=== PATIENT | male | born 1940 | race Caucasian/White ===

== ENCOUNTER 2017-02-02 08:50 | Outpatient (CLI) | payer MEDICARE ==
[2017-02-02 11:05] LABS: HEMOGLOBIN A1C 0.87 g/dL
[2017-02-02 11:13] LABS: ALBUMIN/GLOBULIN RATIO 1.2 (1.0-2.2); BILIRUBIN,TOTAL 1.1 mg/dL (0.2-1.0); BUN - BLOOD UREA NITROGEN 16 mg/dL (6-20); CALCIUM 9.9 mg/dL (8.5-10.3); CARBON DIOXIDE - CO2 28 mmol/L (21-32); CHLORIDE 97 mmol/L (101-111); CHOL/HDL RATIO 2.1 (<5.0); CHOLESTEROL 144 mg/dL; CREATININE 1.1 mg/dL (0.6-1.2); GFR - MDRD 65 (>89); GLUCOSE 285 mg/dL (70-100); HDL CHOLESTEROL 68 mg/dL; LDL/HDL RATIO 0.9 (<3.6); POTASSIUM 4.4 mmol/L (3.5-5.0); SODIUM 134 mmol/L (135-145); TOTAL PROTEIN 8.2 g/dL (6.7-8.2); TRIGLYCERIDES 66 mg/dL; VLDL CHOLESTEROL 13 mg/dL
== END 2017-02-02 08:51 | disposition home or self-care (01) ==
LOC: LAB.F 08:50
PROVIDERS: ATTEND Nurse Practitioner Family
DX: I10 Essential (primary) hypertension (principal); E11.9 Type 2 diabetes mellitus without complications; E03.9 Hypothyroidism, unspecified
CPT/HCPCS: 36415; 80053; 80061; 83036; 84443

== ENCOUNTER 2017-03-16 11:24 | Outpatient (CLI) | payer MEDICARE ==
--- NOTE | 2017-03-16 19:21 | XRAY Report ---
TWO VIEW CHEST: 03/16/2017 CLINICAL INDICATION: Abnormal breath sounds. COMPARISON: 06/23/2008 Frontal and lateral views of the chest demonstrate an enlarged cardiac silhouette. Mild basilar atel ectasis is present. No effusion or pneumothorax is seen. IMPRESSION: BIBASILAR ATELECTASIS. JOB #: [id number] EXT JOB #:[id number]
== END 2017-03-16 11:25 | disposition home or self-care (01) ==
LOC: DI.S 11:24
PROVIDERS: ATTEND Nurse Practitioner Family
DX: J98.11 Atelectasis (principal); I10 Essential (primary) hypertension; E11.9 Type 2 diabetes mellitus without complications; M50.00 Cervical disc disorder with myelopathy, unspecified cervical region
CPT/HCPCS: 36415; 71020; 80053; 83036; 85610; 85730; 93005

== ENCOUNTER 2017-03-16 13:55 | Outpatient (CLI) | payer MEDICARE | END 2017-03-16 13:56 | disposition home or self-care (01) | DX: E11.9 Type 2 diabetes mellitus without complications (principal) ==

== ENCOUNTER 2017-03-18 13:21 | Outpatient (CLI) | payer MEDICARE ==
[2017-03-18 18:11] LABS: BILIRUBIN,URINE NEGATIVE (NEGATIVE); PH,URINE 5.5 PH (5.0-7.5)
[2017-03-18 18:29] LABS: WBC,URINE 0-3 /HPF (0-3)
== END 2017-03-18 13:22 ==
LOC: LAB.R 13:21
PROVIDERS: ATTEND Nurse Practitioner Family
DX: Z01.818 Encounter for other preprocedural examination (principal); E11.9 Type 2 diabetes mellitus without complications
CPT/HCPCS: 81001

== ENCOUNTER 2017-03-18 15:01 | Outpatient (CLI) | payer MEDICARE ==
[2017-03-18 17:52] VITALS: BP 146/64
--- NOTE | 2017-03-22 08:01 | CARDIAC PROCEDURE NOTE ---
DATE OF SERVICE: 03/18/2017 00:00:00 PRIMARY CARE PROVIDER: BETHEL Garcia PROCEDURE: Cardiac treadmill stress test. PROCEDURE SYMPTOMS: Dyspnea on exertion, and preoperative spinal surgery. CARDIAC RISK FACTORS INCLUDE: Age, diabetes, and hypertension. PREVIOUS CARDIAC PROCEDURES: ETT. CLINICAL HISTORY: A 76-year-old male without known coronary artery disease. INITIAL RESTING VITAL SIGNS: Blood pressure 120/60, heart rate 92, height 64 inches, weight 169 pounds, BMI 29.0. PROCEDURE AND FINDINGS: Patient identity and date verified, consent signed. The patient performed treadmill exercise using a Jay protocol, completing 3 minutes 52 seconds, and completing an estimated work load of 7.0 metabolic equivalents. Maximal blood pressure was 160/70 with a heart rate of 149 beats per minute or 102% of maximum predicted heart rate for age. Blood pressure dropped to 114/60 at cessation of exercise without symptoms. The patient stopped exercise because of dyspnea. The resting ECG demonstrated normal sinus rhythm with no abnormalities. Maximum ST segment depression during exercise was 2 mm and flat to upsloping. There was one PVC. Heart rate only dropped 9 beats at 1 minute into recovery. FINAL IMPRESSIONS 1. Positive stress electrocardiogram for ischemia by electrocardiographic criteria. 2. Negative stress test clinically for angina. 3. Single PVC. 4. Notified spinal surgery clinic of positive test and need to see advanced manager. 5. Patient was also advised of the positive test and the need to see a advanced manager. JOB #: [id number] EXT JOB #:[id number] MTDD
--- NOTE | 2017-03-26 13:04 | XRAY Report ---
There was no imaging performed for this exam. Procedure notes and results available in the EMR. BON
== END 2017-03-18 15:02 | disposition home or self-care (01) ==
LOC: DI 15:01
PROVIDERS: ATTEND Nurse Practitioner Family
DX: R94.31 Abnormal electrocardiogram [ECG] [EKG] (principal); I10 Essential (primary) hypertension; E11.9 Type 2 diabetes mellitus without complications
CPT/HCPCS: 81001; 93017

== ENCOUNTER 2017-07-26 07:47 | Outpatient (CLI) | payer MEDICARE ==
[2017-07-26 10:49] LABS: BASOPHILS # (AUTO) 0.1 10^3/uL (0.0-0.1); BASOPHILS % (AUTO) 0.9 %; EOSINOPHILS # (AUTO) 0.9 10^3/uL (0.0-0.7); EOSINOPHILS % (AUTO) 7.3 %; HCT - HEMATOCRIT 36.2 % (42.0-52.0); LYMPHOCYTES # (AUTO) 3.6 10^3/uL (1.5-3.5); LYMPHOCYTES % (AUTO) 28.1 %; MEAN CORPUSCULAR HEMOGLOBIN 30.1 pg (27.0-31.0); MEAN CORPUSCULAR HGB CONC 33.1 g/dL (32.0-36.0); MEAN CORPUSCULAR VOLUME 90.8 fL (80.0-94.0); MEAN PLATELET VOLUME 8.4 fL (7.4-11.4); MONOCYTES # (AUTO) 1.1 10^3/uL (0.0-1.0); MONOCYTES % (AUTO) 8.3 %; NEUTROPHILS # (AUTO) 7.1 10^3/uL (1.5-6.6); NEUTROPHILS % (AUTO) 55.4 %; NUCLEATED RED BLOOD CELLS AUTO 0.1 /100WBC; RED BLOOD COUNT 3.99 10^6/uL (4.70-6.10); RED CELL DISTRIBUTION WIDTH 16.6 % (12.0-15.0); UNCORRECTED WHITE BLOOD COUNT 12.7 x10^3/uL; WHITE BLOOD COUNT 12.7 x10^3/uL (4.8-10.8)
[2017-07-26 11:07] LABS: ALBUMIN/GLOBULIN RATIO 1.1 (1.0-2.2); BILIRUBIN,TOTAL 0.7 mg/dL (0.2-1.0); BUN - BLOOD UREA NITROGEN 17 mg/dL (6-20); CALCIUM 9.6 mg/dL (8.5-10.3); CARBON DIOXIDE - CO2 23 mmol/L (21-32); CHLORIDE 100 mmol/L (101-111); CHOLESTEROL 109 mg/dL; CREATININE 0.9 mg/dL (0.6-1.2); GFR - MDRD 82 (>89); GLUCOSE 144 mg/dL (70-100); HDL CHOLESTEROL 55 mg/dL; LDL/HDL RATIO 0.8 (<3.6); SODIUM 137 mmol/L (135-145); TRIGLYCERIDES 60 mg/dL; VLDL CHOLESTEROL 12 mg/dL
[2017-07-26 11:14] LABS: HEMOGLOBIN A1C 0.53 g/dL
== END 2017-07-26 07:48 | disposition home or self-care (01) ==
LOC: LAB.F 07:47
PROVIDERS: ATTEND Nurse Practitioner Family
DX: I10 Essential (primary) hypertension (principal); I25.10 Atherosclerotic heart disease of native coronary artery without angina pectoris; E11.9 Type 2 diabetes mellitus without complications; D64.9 Anemia, unspecified
CPT/HCPCS: 36415; 80053; 80061; 83036; 85025

== ENCOUNTER 2018-01-12 07:44 | Outpatient (CLI) | payer MEDICARE ==
[2018-01-12 10:39] LABS: CALCIUM 9.3 mg/dL (8.5-10.3); CREATININE 0.9 mg/dL (0.6-1.2)
[2018-01-12 10:54] LABS: HB2 TOTAL 15.3 g/dL; HEMOGLOBIN A1C 0.86 g/dL; HEMOGLOBIN A1C % 7.3 % (4.6-6.2)
== END 2018-01-12 07:45 | disposition home or self-care (01) ==
LOC: LAB.F 07:44
PROVIDERS: ATTEND Nurse Practitioner Family
DX: E11.9 Type 2 diabetes mellitus without complications (principal); E03.9 Hypothyroidism, unspecified
CPT/HCPCS: 36415; 80048; 82043; 83036; 84443

== ENCOUNTER 2018-03-23 13:16 | Outpatient (CLI) | payer MEDICARE ==
[2018-03-23 17:23] LABS: BASOPHILS # (AUTO) 0.1 10^3/uL (0.0-0.1); EOSINOPHILS # (AUTO) 0.6 10^3/uL (0.0-0.7); EOSINOPHILS % (AUTO) 5.7 %; HGB - HEMOGLOBIN 13.9 g/dL (14.0-18.0); LYMPHOCYTES # (AUTO) 2.7 10^3/uL (1.5-3.5); LYMPHOCYTES % (AUTO) 24.6 %; MEAN CORPUSCULAR HEMOGLOBIN 29.7 pg (27.0-31.0); MEAN CORPUSCULAR HGB CONC 33.5 g/dL (32.0-36.0); MEAN CORPUSCULAR VOLUME 88.7 fL (80.0-94.0); MEAN PLATELET VOLUME 8.4 fL (7.4-11.4); MONOCYTES # (AUTO) 0.9 10^3/uL (0.0-1.0); MONOCYTES % (AUTO) 8.8 %; NEUTROPHILS # (AUTO) 6.5 10^3/uL (1.5-6.6); NEUTROPHILS % (AUTO) 59.9 %; PLT - PLATELET COUNT 227 10^3/uL (130-450); RED BLOOD COUNT 4.69 10^6/uL (4.70-6.10); RED CELL DISTRIBUTION WIDTH 15.6 % (12.0-15.0); WHITE BLOOD COUNT 10.8 x10^3/uL (4.8-10.8)
[2018-03-23 17:54] LABS: THYROID STIMULATING HORMONE 5.5 uIU/mL (0.34-5.60)
[2018-03-23 17:59] LABS: FERRITIN 55.1 ng/mL (23.9-336.2)
[2018-03-23 18:38] LABS: BUN - BLOOD UREA NITROGEN 13 mg/dL (6-20); CALCIUM 9.5 mg/dL (8.5-10.3); CARBON DIOXIDE - CO2 24 mmol/L (21-32); CHLORIDE 103 mmol/L (101-111); CREATININE 0.9 mg/dL (0.6-1.2); GFR - MDRD 82 (>89); GLUCOSE 147 mg/dL (70-100); SODIUM 136 mmol/L (135-145)
== END 2018-03-23 13:17 | disposition home or self-care (01) ==
LOC: LAB.F 13:16
PROVIDERS: ATTEND Nurse Practitioner Family
DX: E11.9 Type 2 diabetes mellitus without complications (principal); R53.83 Other fatigue; I25.10 Atherosclerotic heart disease of native coronary artery without angina pectoris; E03.9 Hypothyroidism, unspecified
CPT/HCPCS: 36415; 80048; 82728; 83880; 84443; 84481; 85025

== ENCOUNTER 2018-03-23 14:36 | Outpatient (CLI) | payer MEDICARE ==
--- NOTE | 2018-03-23 14:54 | XRAY Report ---
Procedure Date: 03/23/2018 Accession Number: [id number] / [id number] Procedure: XRS - Chest 2 View X-Ray CPT Code: 49982 FULL RESULT: EXAM: Chest 2 View X-Ray DATE: 03/23/2018 2:48 PM CLINICAL HISTORY: ABNORMAL BREATH SOUNDS, SHORTNESS OF BREATH COMPARISON: None. TECHNIQUE: 2 views. FINDINGS: Lungs/Pleura: There is mild peribronchial cuffing which can be seen with airway disease such as bronchitis. No focal opacities evident. No pneumothorax or pleural effusion. Normal volumes. Mediastinum: Cardiomegaly is stable compared to prior. Other: The patient is status post CABG. IMPRESSION: Thickening of the peribronchial tissues, this is nonspecific but can be seen with bronchitis. RADIA
== END 2018-03-23 14:37 | disposition home or self-care (01) ==
LOC: DI.S 14:36
PROVIDERS: ATTEND Nurse Practitioner Family
DX: R09.89 Other specified symptoms and signs involving the circulatory and respiratory systems (principal); R06.02 Shortness of breath; E11.9 Type 2 diabetes mellitus without complications; R53.83 Other fatigue; I25.10 Atherosclerotic heart disease of native coronary artery without angina pectoris; E03.9 Hypothyroidism, unspecified
CPT/HCPCS: 36415; 71046; 80048; 82728; 83880; 84443; 84481; 85025

== ENCOUNTER 2018-08-22 08:00 | Outpatient (CLI) | payer MEDICARE ==
[2018-08-22 18:15] LABS: HB2 TOTAL 16.2 g/dL; HEMOGLOBIN A1C 0.95 g/dL; HEMOGLOBIN A1C % 7.5 % (4.6-6.2)
[2018-08-22 18:23] LABS: THYROID STIMULATING HORMONE 0.84 uIU/mL (0.34-5.60)
[2018-08-22 18:25] LABS: FREE T4 (FREE THYROXINE) 1.29 ng/dL (0.58-1.64)
== END 2018-08-22 23:59 | disposition home or self-care (01) ==
LOC: LAB.S 08:00
PROVIDERS: ATTEND Nurse Practitioner Family
DX: E11.40 Type 2 diabetes mellitus with diabetic neuropathy, unspecified (principal); E03.9 Hypothyroidism, unspecified
CPT/HCPCS: 36415; 83036; 84439; 84443

== ENCOUNTER 2018-11-23 10:10 | Outpatient (CLI) | payer MEDICARE ==
[2018-11-23 18:38] LABS: HB2 TOTAL 15.8 g/dL; HEMOGLOBIN A1C 0.76 g/dL; HEMOGLOBIN A1C % 6.6 % (4.6-6.2)
== END 2018-11-23 10:11 | disposition home or self-care (01) ==
LOC: LAB.F 10:10
PROVIDERS: ATTEND Nurse Practitioner Family
DX: E11.42 Type 2 diabetes mellitus with diabetic polyneuropathy (principal)
CPT/HCPCS: 36415; 83036

== ENCOUNTER 2019-03-16 10:48 | Outpatient (CLI) | payer MEDICARE | END 2019-03-16 10:49 | disposition home or self-care (01) | LOC: LAB.S 10:48 | PROVIDERS: ATTEND Internal Medicine | DX: E11.9 Type 2 diabetes mellitus without complications (principal); E03.9 Hypothyroidism, unspecified | CPT/HCPCS: 36415; 80053; 83036; 84443; 85027 ==

== ENCOUNTER 2019-03-17 13:22 | Outpatient (CLI) | payer MEDICARE ==
[2019-03-17 18:01] LABS: HGB - HEMOGLOBIN 14.8 g/dL (14.0-18.0); MEAN CORPUSCULAR HEMOGLOBIN 29.1 pg (27.0-31.0); MEAN CORPUSCULAR HGB CONC 32.3 g/dL (32.0-36.0); MEAN PLATELET VOLUME 11.3 fL (7.4-11.4); RED BLOOD COUNT 5.09 10^6/uL (4.70-6.10); RED CELL DISTRIBUTION WIDTH 14.2 % (12.0-15.0); WHITE BLOOD COUNT 11.1 x10^3/uL (4.8-10.8)
[2019-03-17 18:51] LABS: ALBUMIN 4.1 g/dL (3.2-5.5); ALBUMIN/GLOBULIN RATIO 1.1 (1.0-2.2); BILIRUBIN,TOTAL 0.9 mg/dL (0.2-1.0); CALCIUM 9.4 mg/dL (8.5-10.3)
[2019-03-17 20:04] LABS: HB2 TOTAL 15.7 g/dL; HEMOGLOBIN A1C 0.79 g/dL; HEMOGLOBIN A1C % 6.8 % (4.6-6.2)
== END 2019-03-17 13:23 | disposition home or self-care (01) ==
LOC: LAB.S 13:22
PROVIDERS: ATTEND Internal Medicine
DX: E11.9 Type 2 diabetes mellitus without complications (principal); E03.9 Hypothyroidism, unspecified; Z79.4 Long term (current) use of insulin
CPT/HCPCS: 36415; 80053; 83036; 84443; 85027

== ENCOUNTER 2019-08-09 07:03 | Outpatient (CLI) | payer MEDICARE ==
[2019-08-09 18:00] LABS: ALBUMIN/GLOBULIN RATIO 1.2 (1.0-2.2); ALKALINE PHOSPHATASE 60 IU/L (42-121); ALT ALANINE AMINOTRANSFERASE 21 IU/L (10-60); AST ASPARTATE AMINOTRANSFERASE 23 IU/L (10-42); BILIRUBIN,TOTAL 0.6 mg/dL (0.2-1.0); BUN - BLOOD UREA NITROGEN 20 mg/dL (6-20); CALCIUM 9.1 mg/dL (8.5-10.3); CARBON DIOXIDE - CO2 26 mmol/L (21-32); CHLORIDE 104 mmol/L (101-111); CHOL/HDL RATIO 2.9 (<5.0); CHOLESTEROL 160 mg/dL; CREATININE 1.1 mg/dL (0.6-1.2); GFR - MDRD 65 (>89); GLUCOSE 99 mg/dL (70-100); HDL CHOLESTEROL 56 mg/dL; LDL CHOLESTEROL,CALCULATED 85 mg/dL; LDL/HDL RATIO 1.5 (<3.6); SODIUM 138 mmol/L (135-145); TOTAL PROTEIN 7.3 g/dL (6.7-8.2); VLDL CHOLESTEROL 19 mg/dL
[2019-08-09 18:25] LABS: HB2 TOTAL 14.9 g/dL; HEMOGLOBIN A1C 0.57 g/dL; HEMOGLOBIN A1C % 5.7 % (4.6-6.2)
[2019-08-09 18:48] LABS: FREE T4 (FREE THYROXINE) 0.91 ng/dL (0.58-1.64)
== END 2019-08-09 07:04 | disposition home or self-care (01) ==
LOC: LAB.S 07:03
PROVIDERS: ATTEND Internal Medicine
DX: E11.9 Type 2 diabetes mellitus without complications (principal); Z79.4 Long term (current) use of insulin; E03.9 Hypothyroidism, unspecified
CPT/HCPCS: 36415; 80053; 80061; 83036; 83721; 84439; 84443

== ENCOUNTER 2019-10-23 10:23 | Outpatient (CLI) | payer MEDICARE | END 2019-10-23 10:24 | disposition home or self-care (01) | LOC: LAB.S 10:23 | PROVIDERS: ATTEND Internal Medicine | DX: E03.9 Hypothyroidism, unspecified (principal) | CPT/HCPCS: 36415; 84443 ==

== ENCOUNTER 2020-02-12 10:50 | Outpatient (CLI) | payer MEDICARE ==
[2020-02-12 15:27] LABS: CALCIUM 9.4 mg/dL (8.5-10.3); CREATININE 1.3 mg/dL (0.6-1.2)
[2020-02-12 15:37] LABS: HB2 TOTAL 15.2 g/dL; HEMOGLOBIN A1C 0.56 g/dL; HEMOGLOBIN A1C % 5.5 % (4.6-6.2)
== END 2020-02-12 10:51 | disposition home or self-care (01) ==
LOC: LAB.S 10:50
PROVIDERS: ATTEND Internal Medicine
DX: E11.9 Type 2 diabetes mellitus without complications (principal); E03.9 Hypothyroidism, unspecified; Z79.4 Long term (current) use of insulin
CPT/HCPCS: 36415; 80048; 83036; 84443

== ENCOUNTER 2020-03-06 11:26 | Outpatient (CLI) | payer MEDICARE ==
[2020-03-06 15:37] LABS: CALCIUM 9.4 mg/dL (8.5-10.3); CREATININE 1.2 mg/dL (0.6-1.2)
== END 2020-03-06 11:27 | disposition home or self-care (01) ==
LOC: LAB.S 11:26
PROVIDERS: ATTEND Internal Medicine
DX: I10 Essential (primary) hypertension (principal); I27.20 Pulmonary hypertension, unspecified
CPT/HCPCS: 36415; 80048

== ENCOUNTER 2020-05-29 21:46 | Outpatient (CLI) | payer MEDICARE | END 2020-05-29 21:47 | disposition EMS.NT | LOC: EMS 21:46 | PROVIDERS: ATTEND Surgery | DX: R41.82 Altered mental status, unspecified (principal); R11.0 Nausea; R53.1 Weakness ==

== ENCOUNTER 2020-05-30 08:00 | Outpatient (CLI) | payer MEDICARE | END 2020-05-30 23:59 | disposition home or self-care (01) | LOC: LAB.F 08:00 | PROVIDERS: ATTEND Family Medicine | DX: E11.9 Type 2 diabetes mellitus without complications (principal); Z79.4 Long term (current) use of insulin | CPT/HCPCS: 82962 ==

== ENCOUNTER 2020-08-26 11:10 | Outpatient (CLI) | payer MEDICARE ==
[2020-08-26 15:35] LABS: BASOPHILS # (AUTO) 0.1 10^3/uL (0.0-0.1); BASOPHILS % (AUTO) 0.7 %; EOSINOPHILS # (AUTO) 0.2 10^3/uL (0.0-0.7); EOSINOPHILS % (AUTO) 1.9 %; LYMPHOCYTES # (AUTO) 3.6 10^3/uL (1.5-3.5); LYMPHOCYTES % (AUTO) 38.1 %; MEAN CORPUSCULAR HEMOGLOBIN 31.6 pg (27.0-31.0); MEAN CORPUSCULAR VOLUME 98.7 fL (80.0-94.0); MEAN PLATELET VOLUME 11.1 fL (7.4-11.4); MONOCYTES # (AUTO) 0.7 10^3/uL (0.0-1.0); MONOCYTES % (AUTO) 7.3 %; NEUTROPHILS # (AUTO) 4.9 10^3/uL (1.5-6.6); NEUTROPHILS % (AUTO) 51.8 %; PLT - PLATELET COUNT 190 10^3/uL (130-450); RED BLOOD COUNT 4.75 10^6/uL (4.70-6.10); RED CELL DISTRIBUTION WIDTH 14.5 % (12.0-15.0); WHITE BLOOD COUNT 9.5 x10^3/uL (4.8-10.8)
[2020-08-26 15:36] LABS: ALBUMIN 3.9 g/dL (3.2-5.5); ALBUMIN/GLOBULIN RATIO 1.2 (1.0-2.2); BILIRUBIN,TOTAL 0.7 mg/dL (0.2-1.0); CREATININE 1.3 mg/dL (0.6-1.2); TOTAL PROTEIN 7.1 g/dL (6.7-8.2)
[2020-08-26 16:44] LABS: FREE T4 (FREE THYROXINE) 1.79 ng/dL (0.58-1.64)
[2020-08-26 20:08] LABS: HEMOGLOBIN A1c% 6.5 % (4.27-6.07)
== END 2020-08-26 11:11 | disposition home or self-care (01) ==
LOC: LAB.S 11:10
PROVIDERS: ATTEND Internal Medicine
DX: I10 Essential (primary) hypertension (principal); E11.9 Type 2 diabetes mellitus without complications; E03.9 Hypothyroidism, unspecified
CPT/HCPCS: 36415; 80053; 83036; 84439; 84443; 85025

== ENCOUNTER 2021-05-30 09:54 | Outpatient (CLI) | payer MEDICARE | END 2021-05-30 09:55 | disposition critical access hospital (66) | LOC: EMS 09:54 | DX: R06.02 Shortness of breath (principal) | CPT/HCPCS: A0425; A0427 ==

== ENCOUNTER 2021-05-30 10:32 | Emergency (ER) | payer MEDICARE ==
[2021-05-30] MEDS ORDERED: methylPREDNISolone SUCCINATE 125 MG/2 ML VIAL IVP STA (10:44)
[2021-05-30] MEDS ORDERED: IPRATROPIUM/ALBUTEROL 3 ML NEB INH STA ×2 (10:44→11:11)
[2021-05-30 11:03] LABS: BASOPHILS # (AUTO) 0.1 10^3/uL (0.0-0.1); BASOPHILS % (AUTO) 0.7 %; EOSINOPHILS # (AUTO) 0.2 10^3/uL (0.0-0.7); EOSINOPHILS % (AUTO) 2.1 %; HCT - HEMATOCRIT 38.1 % (42.0-52.0); HGB - HEMOGLOBIN 12.3 g/dL (14.0-18.0); LYMPHOCYTES # (AUTO) 0.6 10^3/uL (1.5-3.5); LYMPHOCYTES % (AUTO) 7.2 %; MEAN CORPUSCULAR HEMOGLOBIN 30.1 pg (27.0-31.0); MEAN CORPUSCULAR HGB CONC 32.3 g/dL (32.0-36.0); MEAN CORPUSCULAR VOLUME 93.2 fL (80.0-94.0); MEAN PLATELET VOLUME 10.3 fL (7.4-11.4); MONOCYTES # (AUTO) 0.6 10^3/uL (0.0-1.0); MONOCYTES % (AUTO) 7.1 %; NEUTROPHILS # (AUTO) 7.2 10^3/uL (1.5-6.6); NEUTROPHILS % (AUTO) 82.3 %; PLT - PLATELET COUNT 155 10^3/uL (130-450); RED BLOOD COUNT 4.09 10^6/uL (4.70-6.10); RED CELL DISTRIBUTION WIDTH 16.7 % (12.0-15.0); WHITE BLOOD COUNT 8.8 x10^3/uL (4.8-10.8)
[2021-05-30 11:16] LABS: BILIRUBIN,TOTAL 1.3 mg/dL (0.2-1.0); CALCIUM 8.4 mg/dL (8.5-10.3); CREATININE 1.6 mg/dL (0.6-1.2); POTASSIUM 4.9 mmol/L (3.5-5.0); TOTAL PROTEIN 5.9 g/dL (6.7-8.2)
--- NOTE | 2021-05-30 11:17 | XRAY Report ---
PROCEDURE: Chest 1 View X-Ray INDICATIONS: chest pain TECHNIQUE: One view of the chest was acquired. COMPARISON: CXR 03/23/2018. FINDINGS: Surgical changes and devices: Post median sternotomy and CABG.. Lungs and pleura: No pleural effusions or pneumothorax. Lungs are clear. Mediastinum: Mediastinal contours appear normal. Heart size is enlarged. Bones and chest wall: No suspicious bony lesions. Overlying soft tissues appear unremarkable. IMPRESSION: No acute cardiopulmonary abnormality identified. Post CABG. Cardiomegaly. Reviewed by: Gabriele Liu MD on 05/30/2021 11:16 AM PDT Approved by: Gabriele Liu MD on 05/30/2021 11:16 AM PDT Station ID: [id number]
--- NOTE | 2021-05-30 11:52 | ED Physician Documentation ---
PD HPI DYSPNEA - Stated complaint Stated Complaint: SOA/LOW O2 - Chief complaint Chief Complaint: Resp - History obtained from History obtained from: Patient, Family, EMS - History of Present Illness Timing - onset during: Rest Timing - duration: Weeks (3) Pain level max: 0 Pain level now: 0 Improved by: O2, Inhaler/neb, Steroids, Rest Worsened by: Exertion Associated symptoms: Cough (dry, chronic). No: Fever - Additional information Additional information: Patient is a 80-year-old male with a history of pulmonary fibrosis who has been having increased difficulty breathing over the past several weeks. Was placed on antibiotics and steroids and did seem to improve on this, when he stopped the steroids he began to have difficulty breathing again. Usually is on 3 to 4 L of oxygen at home. Has increased to 6 recently. O2 sat was down to 70 at home today. Has had 3 covid vaccinations. Review of Systems Ten Systems: 10 systems reviewed and negative Constitutional: denies: Fever, Chills Nose: denies: Rhinorrhea / runny nose, Congestion Cardiac: denies: Palpitations Respiratory: reports: Dyspnea, Wheezing GI: denies: Vomiting, Diarrhea : denies: Dysuria Musculoskeletal: denies: Neck pain, Back pain Neurologic: denies: Headache PD PAST MEDICAL HISTORY - Past Medical History Cardiovascular: Hypertension Respiratory: Other (pulmonary fibrosis) Endocrine/Autoimmune: Type 2 diabetes Musculoskeletal: Osteoarthritis - Past Surgical History General: Other - Present Medications Home Medications: Ambulatory Orders Medication Instructions Recorded Confirmed Albuterol Sulf [Ventolin Hfa 1 - 2 puffs INH Q4HR PRN #1 inhaler 05/30/21 Inhaler] Azithromycin [Zithromax] 0 mg PO DAILY #6 tablet 05/30/21 Cefpodoxime Proxetil [Vantin] 100 mg PO Q12H #20 tablet 05/30/21 Sulfamethox/Trimeth 800/160 1 tablet PO UD #15 tablet 05/30/21 [Bactrim Ds] predniSONE [Deltasone] 10 mg PO [id number] #42 tab 05/30/21 - Allergies Allergies/Adverse Reactions: Allergies Allergy/AdvReac Type Severity Reaction Status Date / Time naproxen Allergy Intermediate Hives Verified 05/30/21 11:22 PD ED PE NORMAL - Vitals Vital signs reviewed: Yes - General General: Alert and oriented X 3, No acute distress, Well developed/nourished - HEENT HEENT: PERRL, Moist mucous membranes - Neck Neck: Supple, no meningeal sign - Cardiac Cardiac: RRR, Strong equal pulses - Respiratory Respiratory: No respiratory distress, Clear bilaterally - Abdomen Abdomen: Soft, Non tender, Non distended - Derm Derm: Warm and dry - Extremities Extremities: No edema, No calf tenderness / cord - Neuro Neuro: Alert and oriented X 3 - Psych Psych: Normal mood, Normal affect Results - Vitals Vitals: Vital Signs - 24 hr 05/30/21 05/30/21 05/30/21 10:43 11:10 12:27 Temperature 36.7 C Heart Rate 115 H 88 105 H Respiratory 28 H 22 22 Rate Blood Pressure 117/70 110/63 O2 Saturation 88 L 92 05/30/21 05/30/21 05/30/21 12:30 13:14 14:00 Temperature Heart Rate 103 H 103 H 102 H Respiratory 24 26 H 29 H Rate Blood Pressure 115/70 133/73 H 114/77 O2 Saturation 91 L 91 L 95 05/30/21 05/30/21 14:47 16:08 Temperature Heart Rate 103 H 99 Respiratory 28 H 28 H Rate Blood Pressure 114/77 119/73 O2 Saturation 94 90 L Oxygen O2 Source Nasal cannula Oxygen Flow Rate 6 - Labs Labs: Laboratory Tests 05/30/21 05/30/21 05/30/21 10:56 10:56 10:56 WBC 8.8 RBC 4.09 L Hgb 12.3 L Hct 38.1 L MCV 93.2 MCH 30.1 MCHC 32.3 RDW 16.7 H Plt Count 155 MPV 10.3 Neut # (Auto) 7.2 H Lymph # (Auto) 0.6 L Cassia # (Auto) 0.6 Eos # (Auto) 0.2 Baso # (Auto) 0.1 Absolute Nucleated RBC 0.00 Nucleated RBC % 0.0 Sodium 132 L Potassium 4.9 Chloride 98 L Carbon Dioxide 20 L Anion Gap 14.0 H BUN 37 H Creatinine 1.6 H Estimated GFR (MDRD) 42 L Glucose 224 H Calcium 8.4 L Total Bilirubin 1.3 H AST 25 ALT 27 Alkaline Phosphatase 70 B-Natriuretic Peptide 827 H Total Protein 5.9 L Albumin 3.0 L Globulin 2.9 Albumin/Globulin Ratio 1.0 Nasal Adenovirus (PCR) Nasal B. parapertussis DNA (PCR) Nasal Coronavir 229E PCR Nasal Coronavir HKU1 PCR Nasal Coronavir NL63 PCR Nasal Coronavir OC43 PCR Nasal Enterovir/Rhinovir PCR Nasal Influenza B PCR Nasal Influenza A PCR Nasal Parainfluen 1 PCR Nasal Parainfluen 2 PCR Nasal Parainfluen 3 PCR Nasal Parainfluen 4 PCR Nasal RSV (PCR) Nasal B.pertussis DNA PCR Nasal C.pneumoniae (PCR) Ryan Human Metapneumo PCR Nasal M.pneumoniae (PCR) Nasal SARS-CoV-2 (PCR) 05/30/21 10:58 WBC RBC Hgb Hct MCV MCH MCHC RDW Plt Count MPV Neut # (Auto) Lymph # (Auto) Cassia # (Auto) Eos # (Auto) Baso # (Auto) Absolute Nucleated RBC Nucleated RBC % Sodium Potassium Chloride Carbon Dioxide Anion Gap BUN Creatinine Estimated GFR (MDRD) Glucose Calcium Total Bilirubin AST ALT Alkaline Phosphatase B-Natriuretic Peptide Total Protein Albumin Globulin Albumin/Globulin Ratio Nasal Adenovirus (PCR) NOT DETECTED Nasal B. parapertussis DNA (PCR) NOT DETECTED Nasal Coronavir 229E PCR NOT DETECTED Nasal Coronavir HKU1 PCR NOT DETECTED Nasal Coronavir NL63 PCR NOT DETECTED Nasal Coronavir OC43 PCR NOT DETECTED Nasal Enterovir/Rhinovir PCR NOT DETECTED Nasal Influenza B PCR NOT DETECTED Nasal Influenza A PCR NOT DETECTED Nasal Parainfluen 1 PCR NOT DETECTED Nasal Parainfluen 2 PCR NOT DETECTED Nasal Parainfluen 3 PCR NOT DETECTED Nasal Parainfluen 4 PCR NOT DETECTED Nasal RSV (PCR) NOT DETECTED Nasal B.pertussis DNA PCR NOT DETECTED Nasal C.pneumoniae (PCR) NOT DETECTED Ryan Human Metapneumo PCR NOT DETECTED Nasal M.pneumoniae (PCR) NOT DETECTED Nasal SARS-CoV-2 (PCR) NOT DETECTED - Rads (name of study) cxr Radiology: Final report received, EMP read contemporaneously, See rad report (no acute abnormality.) CT chest Radiology: Final report received, EMP read contemporaneously, See rad report PD MEDICAL DECISION MAKING - ED course Complexity details: reviewed results, re-evaluated patient, considered differential, d/w patient, d/w family, d/w solutions delivery consultant ED course: 80-year-old male presents to the emergency department with hypoxia today. This is been ongoing for the past month or so, worsening over the past 3 to 4 days since he stopped the prednisone. On CT of the chest, does appear to have a small right upper lobe pneumonia. We will place on antibiotics for this. Patient is well-appearing, nontoxic. Given Solu-Medrol and albuterol here. He is able to be weaned down to his baseline O2 of 4 L and maintain 90 to 92% oxygen saturation. Discussed the case with Dr. Pool, pulmonary technical support consultant for [facility]. He recommends placing on steroids, albuterol and having the patient follow-up in 1 week. Patient does not want to stay in the hospital. Patient and his are comfortable going home at this time. Patient counseled regarding signs and symptoms for which I believe and urgent reevaluation would be needed. This document was made in part using voice recognition software. While efforts are made to proofread this document, sound alike and grammatical errors may occur. IMPRESSION: 1. Small focal pneumonia in the superior segment of the right lower lobe superimposed on mild bibasilar pulmonary fibrosis. 2. Coronary artery disease. 3. Nonspecific mediastinal adenopathy. Departure - Departure Disposition: Home, Self Care Clinical Impression: Pulmonary fibrosis Pneumonia Qualifiers: Pneumonia type: due to unspecified organism Laterality: right Lung location: upper lobe of lung Qualified Code(s): J18.9 - Pneumonia, unspecified organism Condition: Good Instructions: ED Pneumonia Adult Follow-Up: BETO SNIDER ARNP [Primary Care Provider] - Larry Black MD [Physician No Access] - Within 1 week Prescriptions: Albuterol Sulf [Ventolin Hfa Inhaler] 1 - 2 puffs INH Q4HR PRN #1 inhaler PRN Reason: Shortness Of Air/Wheezing Sulfamethox/Trimeth 800/160 [Bactrim Ds] 1 tablet PO UD #15 tablet predniSONE [Deltasone] 10 mg PO [id number] #42 tab Cefpodoxime Proxetil [Vantin] 100 mg PO Q12H #20 tablet Azithromycin [Zithromax] 0 mg PO DAILY #6 tablet Comments: Please follow-up with your disintegrator operator for further care. Return if you worsen. Your prescriptions were sent to [facility] in [place]. Use all medications as prescribed. Discharge Date/Time: 05/30/21 16:20
[2021-05-30] MEDS ORDERED: SODIUM CHLORIDE 0.9% 1,000 ML IV STA (11:53)
[2021-05-30 12:15] LABS: B. PARAPERTUSSIS- RESP PCR PAN NOT DETECTED; B. PERTUSSIS- RESP PCR PANEL NOT DETECTED; C. PNEUMONIAE- RESP PCR PANEL NOT DETECTED; CORONAVIRUS 229E-RESP PCR NOT DETECTED; CORONAVIRUS HKU1-RESP PCR NOT DETECTED; CORONAVIRUS NL63-RESP PCR NOT DETECTED; CORONAVIRUS OC43-RESP PCR NOT DETECTED; HUMAN METAPNEUMOVIRUS NOT DETECTED; INFLUENZA A- RESP PCR PANEL NOT DETECTED; INFLUENZA B - RESP PCR PANEL NOT DETECTED; M. PNEUMONIAE- RESP PCR PANEL NOT DETECTED; PARAINFLUENZA VIRUS 1 NOT DETECTED; PARAINFLUENZA VIRUS 2 NOT DETECTED; PARAINFLUENZA VIRUS 3 NOT DETECTED; PARAINFLUENZA VIRUS 4 NOT DETECTED; RHINOVIRUS/ENTEROVIRUS NOT DETECTED; RSV- RESP PCR PANEL NOT DETECTED; SARS-CoV-2 -RESP PCR PANEL NOT DETECTED
--- NOTE | 2021-05-30 13:43 | Ultrasound Report ---
PROCEDURE: Duplex Ext Veins Left INDICATIONS: LLE swelling, bruising TECHNIQUE: Real-time imaging, as well as color and pulse Doppler interrogation, were performed of the lower extr emity deep veins from the inguinal ligament to the popliteal fossa. COMPARISON: None. FINDINGS: The deep veins are normally compressible, and free of intraluminal thrombus. Color and pu lse Doppler demonstrate normal phasic intraluminal flow. There is normal augmentation response to di stal compression maneuver. 1 x 1.7 x 2.8 cm heterogeneously hypoechoic collection within medial left midcalf muscle. No internal vascularity is seen. No adjacent hyperreninemia. IMPRESSION: 1. No evidence of DVT in visualized left lower extremity veins. 2. Possible intramuscular hematoma in the left mid calf region as above. Reviewed by: Jassi Josue MD on 05/30/2021 1:42 PM PDT Approved by: Jassi Josue MD on 05/30/2021 1:42 PM PDT Station ID: [id number]
[2021-05-30] MEDS ORDERED: IOPAMIDOL-300 100 ML VIAL ONE (13:49)
[2021-05-30] MEDS ORDERED: IOPAMIDOL-300 100 ML VIAL IVP ONE (14:07)
--- NOTE | 2021-05-30 14:22 | CT Report ---
PROCEDURE: CHEST W INDICATIONS: increasing hypoxia CONTRAST: IV CONTRAST: Isovue 300 ml: 100 PO CONTRAST: *NO PO CONTRAST TECHNIQUE: After the administration of intravenous contrast, images were acquired from the pulmonary apices to t he posterior costophrenic angles. Multiplanar MIP reformats were acquired. For radiation dose reduc tion, the following was used: automated exposure control, adjustment of mA and/or kV according to pa tient size. COMPARISON: None. FINDINGS: Image quality: Excellent. Lungs and pleura: Biapical calcified pleural plaques, uncertain etiology. This may potentially be rel ated to chronic granulomatous disease. Mild bibasilar pulmonary fibrosis. Focal peripheral airspace c onsolidation subjacent to the pleura, superior segment of right lower lobe. No pleural effusion. No p neumothorax. Mediastinum: Heart size is normal. No pericardial effusion. Coronary artery calcifications. Remote CABG. Nonspecific mediastinal adenopathy. There are greater than usual expected number of lymph nodes seen. Lymph nodes are prominent, but not pathologically enlarged by size criteria. A right inferior paratracheal lymph node on image 22/4 measures 1.5 x 2.3 cm. Prominent lymph nodes are also noted in the AP window, prevascular region, and subcarinal region,, as well as hilar lymph nodes. Thoracic aor ta and central pulmonary arteries are normal in size. Esophagus is normal in caliber. No hiatal her jacqui. Bones and chest wall: No suspicious bony lesions. No vertebral body compression fractures. No axil meghan or supraclavicular adenopathy by size criteria. The thyroid is normal in size and there are no incidental findings.. Abdomen: Visualized upper abdominal solid organs appear normal. Upper abdominal bowel loops are nor mal in caliber. IMPRESSION: 1. Small focal pneumonia in the superior segment of the right lower lobe superimposed on mild bibasil ar pulmonary fibrosis. 2. Coronary artery disease. 3. Nonspecific mediastinal adenopathy. CLINICAL RECOMMENDATION STATEMENTS: In patients <35 years with an ITN detected on CT, MRI, or extrathyroidal ultrasound, the Committee re commends further evaluation with dedicated thyroid ultrasound if the nodule is ?1 cm and has no suspi cious imaging features, and if the patient has normal life expectancy. In patients ?35 years with an ITN detected on CT, MRI, or extrathyroidal ultrasound, the Committee re commends further evaluation with dedicated thyroid ultrasound if the nodule is ?1.5 cm and has no lopez picious imaging features, and if the patient has normal life expectancy. (ACR, 2014) Reviewed by: Scotty Mruguia MD on 05/30/2021 2:21 PM PDT Approved by: Scotty Murguia MD on 05/30/2021 2:21 PM PDT Station ID: [id number]
[2021-05-30] MEDS ORDERED: cefTRIAXone 1 GM VIAL IVP STA (15:05)
[2021-05-30 16:09] VITALS: BP 119/73
== END 2021-05-30 16:20 | disposition home or self-care (01) ==
LOC: EDUNIT# → ED 10:32
DX: J18.9 Pneumonia, unspecified organism (principal); J84.10 Pulmonary fibrosis, unspecified; Z99.81 Dependence on supplemental oxygen; I10 Essential (primary) hypertension; E11.9 Type 2 diabetes mellitus without complications; Z20.822 Contact with and (suspected) exposure to COVID-19
CPT/HCPCS: 36415; 71045; 71260; 80053; 83880; 85025; 87631; 93971; 94640; 96361; 96374; 96375; 99284; Q9967; 0202U